=== PATIENT | male | born 1990 | race Caucasian/White ===

== ENCOUNTER 2022-04-26 08:22 | Emergency (ER) | payer BC ==
[~2022-04-26] VITALS: Ht 182.9 cm; Wt 91.0 kg
[2022-04-26 08:28] VITALS: BP 105/62
[2022-04-26] MEDS ORDERED: ALPRAZOLAM 0.5 MG TABLET PO ONE (08:45)
[2022-04-26] MEDS ORDERED: ALPR-341 PO (08:46)
== END 2022-04-26 09:20 | disposition home or self-care (01) ==
LOC: ER 08:44
DX: Z76.0 Encounter for issue of repeat prescription (principal)
CPT/HCPCS: 99283